=== PATIENT | male | born 1960 | race African-American/Black ===

== ENCOUNTER 2017-02-02 14:09 | Emergency (ER) | payer OTHER ==
[~2017-02-02] VITALS: Ht 185.4 cm; Wt 117.0 kg
[2017-02-02 18:08] LABS: CALCIUM 8.7 mg/dL (8.5-10.1); CARBON DIOXIDE 29.1 mmol/L (21-32); CHLORIDE SERUM 106 mmol/L (98-107); CREATININE SERUM 1.3 mg/dL (0.7-1.3); GFR1 > 60 mL/min; GLUCOSE SERUM 102 mg/dL (74-106); POTASSIUM SERUM 3.7 mmol/L (3.5-5.1); SODIUM SERUM 144 mmol/L (136-145)
[2017-02-02 18:13] LABS: ALBUMIN 3.8 g/dL (3.4-5.0); ALKALINE PHOSPHATASE 74 U/L (46-116); ALT/SGPT 38 U/L (16-63); AST/SGOT 35 U/L (15-37); BILIRUBIN TOTAL 0.49 mg/dL (0.20-1.00); CHOLESTEROL 162 mg/dL (<200); TOTAL PROTEIN, SERUM 7.4 g/dL (6.4-8.2); TRIGLYCERIDES 144 mg/dL (<150)
[2017-02-02 18:22] LABS: CHOLESTEROL/HDL RATIO 2.7; HDL CHOLESTEROL 61 mg/dL (40-60)
[2017-02-02 18:40] LABS: BASOPHIL % 0.5 % (0-2); PLATELET COUNT 197 x10^3mcL (130-400)
[2017-02-02 18:41] LABS: RED CELL DISTRIBUTION WIDTH 15.7 % (11.5-14.5)
[2017-02-02 20:44] VITALS: BP 147/98
== END 2017-02-02 14:20 | disposition home or self-care (01) ==
LOC: ED 14:09
PROVIDERS: Specialist
DX: R04.2 Hemoptysis (principal); R22.1 Localized swelling, mass and lump, neck; I10 Essential (primary) hypertension
CPT/HCPCS: J7030; Q0092; Q9967